=== PATIENT | male | born 1950 | race Caucasian/White ===

== ENCOUNTER 2024-02-03 08:53 | Outpatient (AMB) | payer MEDICARE, SELFPAY ==
--- NOTE | 2024-02-03 09:01 | MHC.PC.OV ---
Vital Signs 02/03/24 09:11 Height 5 ft 4 in Weight 140 lb 6 oz BMI 24.1 BP 110/58 L Blood Pressure Location Lt brachial Position Sitting Respiration 13 Pulse 73 Pulse Source Pulse Oximeter Pulse Oximetry (%) 96 Oxygen Delivery Method Room Air Intake Visit Reasons: NPV Intake Note: Patient is here to establish care with no concerns at this time. Benzene Operator Required: No Accompanied by: Self / Same As Patient Allergies No Known Allergies Allergy (Verified 02/03/24 09:14) Medication List - Last Reconciled 02/03/24 by Carmelina Schultz MD alirocumab (Praluent Pen) 75 mg subcut Q2W docusate sodium 50 mg PO DAILY losartan 25 mg PO DAILY omeprazole 40 mg PO BID ondansetron HCl 4 mg PO Q6H PRN Tobacco use date assessed: 02/03/24 Fall risk assessment: No Falls in past year Last assessed Fall Risk: 02/03/24 Dental Screening Dental Screen Date: 02/03/24 Did you have a dental visit in the last 12 months?: Yes Did you have a dental problem in the last 6 months where you did not have access to dental care?: No Was dental information given to patient?: Patient has dentist HPI HPI Comments History of Present Illness Details The patient is a 73 year old male with a past medical history of hypertension, hyperlipidemia, tobacco use, GERD, presenting to [facility]. Transferring from [facility]. [place]. Follows at [place] for scripts CV: on losartan, praluent. Denies chest pain, dizziness, vision changes. GI: barretts, GERD, ulcerative colitis. On omeprazole 40mg twice daily, mesalamine. Still has frequent nausea, dyspepsia. Had a CT abd/pelvis. Showed inflamed appendix. Got removed 12/2023. No symptom relief. Also has significant amount of gallbladder sludge, stones. No RUQ pain. Has seen surgery. Was following with Dr Kelly at [place]. Thinks last endoscopy 2 years ago. Needs new GI 2/2 insurance Recurring precancerous lesion of right cheek. Has upcoming dermatology appt for which he needs referral ROS CONSTITUTIONAL: Denies weight loss, fever and chills. HEENT: Denies changes in vision and hearing. RESPIRATORY: Denies SOB and cough. CV: Denies palpitations and CP GI: see HPI. : Denies dysuria and urinary frequency. MSK: Denies new myalgia and joint pain. SKIN: Denies rash and pruritus. NEUROLOGICAL: Denies headache PSYCHIATRIC: Denies recent changes in mood. PHYSICAL EXAM: GENERAL: Alert and oriented x 3. NAD EYES: EOMI. Anicteric. HENT: Moist mucous membranes. No scleral icterus. No cervical lymphadenopathy. LUNGS: Clear to auscultation bilaterally. CARDIOVASCULAR: Regular rate and rhythm. No murmur. No JVD. ABDOMEN: Soft, non-tender +bs EXTREMITIES: No edema. Non-tender. SKIN: No rashes or lesions. Warm. NEUROLOGIC: No focal neurological deficits. CN II-XII grossly intact PSYCHIATRIC: Cooperative. Appropriate mood and affect [facility] Medical History (Updated 02/03/24 @ 12:26 by Carmelina Schultz MD) Psoriasis Osteoporosis Precancerous skin lesion Clarke esophagus GERD (gastroesophageal reflux disease) Hyperlipidemia Ulcerative colitis Hypertension Surgical History (Updated 02/03/24 @ 10:20 by Sofia Arias CMA) History of appendectomy Family History (Updated 02/03/24 @ 10:21 by Sofia Arias CMA) Mother Psychiatric diagnosis Father Alcoholism Social History (Updated 02/03/24 @ 10:18 by Sofia Arias CMA) Household Members: Spouse Housing: House 75 years or older and lives alone: No Alcohol intake: never Patient Tobacco Use Status: Current everyday Tobacco user Tobacco use type: Cigarette Cigarette Packs Per Day: 0.5 Cigarettes Per Day: 15 Years Smoked: 60 e-Cigarette/Vaping Use: Never Used service: Yes ([employer] ) Current occupational status: retired Current occupational exposures/hazards: No Cognitive needs: No Hearing needs: No Vision needs: No Questionnaire PHQ-9 Over the last 2 weeks, how often have you been bothered by any of the following problems? 1. Little interest or pleasure in doing things: not at all 2. Feeling down, depressed, or hopeless: several days 3. Trouble falling or staying asleep, or sleeping too much: not at all 4. Feeling tired or having little energy: not at all 5. Poor appetite or overeating: not at all 6. Feeling bad about yourself - or that you are a failure or have let yourself or your family down: not at all 7. Trouble concentrating on things, such as reading the newspaper or watching television: not at all 8. Moving or speaking so slowly that other people could have noticed. Or the opposite - being so fidgety or restless that you have been moving around a lot more than usual: not at all 9. Thoughts that you would be better off or of hurting yourself in some way: not at all Total score: 1 Depression Screening Interpretation: Negative (NEG) Depression Screening Done: Yes 67187 - PHQ-9 Billing: Yes Source: Developed by Drs. Chris Kaiser, Nicole Ann, Abisai Pastrana and colleagues, with an educational jocelyne from [employer]. Thrive Questionnaire Date Thrive assessed: 02/03/24 I am a: Patient What is your living situation today?: I have a steady place to live Within the past 12 months, did the food you bought not last and you didn't have the money to get more?: Never true Within the past 12 months, did you worry whether your food would run out before you got money to buy more?: Never true Do you have trouble paying for medicines?: No Do you have trouble getting transportation to medical appointments?: No Do you have trouble paying your heating and electricity bill?: No Do you have trouble taking care of your child, family member or friend?: No Do you have trouble with day-to-day activities such as bathing, preparing meals, shopping, managing finances, etc.?: No Are you currently unemployed and looking for a job?: No Are you interested in more education?: No Please select the resources that you would like help with: None Currently or been in a relationship where the following occur: No concerns reported THRIVE Score: 0 JOSE MARIA-7 AMB Questionnaire JOSE MARIA-7 Date JOSE MARIA - 7 assessed: 02/03/24 Feeling nervous, anxious, or on edge: 1 = Several days Not being able to stop or control worryin = Not at all Worrying too much about different things: 1 = Several days Trouble relaxin = Several days Being so restless that it is hard to sit still: 0 = Not at all Becoming easily annoyed or irritable: 0 = Not at all Feeling afraid as if something awful might happen: 1 = Several days Total JOSE MARIA-7 score (0-4 normal; 5-9 mild; 10-14 moderate; 15-21 severe): 4 Source: Developed by Drs. Chris Kaiser, Nicole Ann, Abisai Pastrana and colleagues, with an educational jocelyne from [employer]. JOSE MARIA-7 Assessment Billing JOSE MARIA-7 Assessment Tool: JOSE MARIA-7 Assessment 18443 Physical exam (Primary Care) Vital Signs: Last Vital Signs Pulse 73 02/03/24 09:11 Resp 13 02/03/24 09:11 BP 110/58 L 02/03/24 09:11 Pulse Ox 96 02/03/24 09:11 Oxygen Delivery Method Room Air 02/03/24 09:11 BMI result Body Mass Index 24.1 Tobacco/Smoking Status: Tobacco use Status Tobacco use date assessed 02/03/24 02/03/24 09:26 Patient Tobacco Use Status Current everyday Tobacco 02/03/24 10:18 Tobacco use type Cigarette 02/03/24 10:18 e-Cigarette/Vaping Use Never Used 02/03/24 10:18 PHQ-9: PHQ-9 Score PHQ-9: Total score 1 02/03/24 10:17 Depression Screening Interpretation: Negative (NEG) Thrive Assessment: Date of Thrive Assessment Date Thrive assessed 02/03/24 02/03/24 10:17 Currently or been in a relationship where the following occur: No concerns reported Assessment and Plan Assessment & Plan (1) Hypertension: Comment: well controlled on current medication Code(s): I10 - Essential (primary) hypertension Qualifiers: Hypertension type: primary hypertension Qualified Code(s): I10 - Essential (primary) hypertension (2) Hyperlipidemia: Code(s): E78.5 - Hyperlipidemia, unspecified Qualifiers: Hyperlipidemia type: mixed hyperlipidemia Qualified Code(s): E78.2 - Mixed hyperlipidemia (3) Ulcerative colitis: Code(s): K51.90 - Ulcerative colitis, unspecified, without complications Qualifiers: Ulcerative colitis location: other ulcerative colitis Digestive disease complication type: unspecified complication Qualified Code(s): K51.819 - Other ulcerative colitis with unspecified complications (4) GERD (gastroesophageal reflux disease): Code(s): K21.9 - Gastro-esophageal reflux disease without esophagitis Qualifiers: Esophagitis presence: esophagitis presence not specified Qualified Code(s): K21.9 - Gastro-esophageal reflux disease without esophagitis Plan: referral to GI placed (5) Clarke esophagus: Code(s): K22.70 - Clarke's esophagus without dysplasia Qualifiers: Clarke's esophagus type: with dysplasia of unspecified degree Qualified Code(s): K22.719 - Clarke's esophagus with dysplasia, unspecified (6) Precancerous skin lesion: Code(s): L98.9 - Disorder of the skin and subcutaneous tissue, unspecified Plan: referral to dermatology placed Orders: Referrals Gastroenterology Referral K21.9 - Gastro-esophageal reflux disease without esophagitis, K22.70 - Clarke's esophagus without dysplasia, K51.90 - Ulcerative colitis, unspecified, without complications Dermatology Referral L98.9 - Disorder of the skin and subcutaneous tissue, unspecified Medications: New mesalamine ER 2.25 grams (6 x 0.375 gram) PO DAILY 540 caps 3RF Coding Level of Care Code Tele New Pt Level 5 (30896) Diagnoses Primary hypertension I10 Hypertension type: primary hypertension Mixed hyperlipidemia E78.2 Hyperlipidemia type: mixed hyperlipidemia Other ulcerative colitis with complication K51.819 Ulcerative colitis location: other ulcerative colitis Digestive disease complication type: unspecified complication Gastroesophageal reflux disease, unspecified whether esophagitis present K21.9 Esophagitis presence: esophagitis presence not specified Clarke's esophagus with dysplasia K22.719 Clarke's esophagus type: with dysplasia of unspecified degree Precancerous skin lesion L98.9 Additional Codes JOSE MARIA-7 Assessment Billing - JOSE MARIA-7 Assessment Tool: JOSE MARIA-7 Assessment [id number] ([id number])
[2024-02-03 09:11] VITALS: BP 110/58; PULSE 73; RESP 13; O2SAT 96; BMI 24.1
== END 2024-02-03 09:56 | disposition home or self-care (01) ==
PROVIDERS: PCP Internal Medicine; Visit Provider Internal Medicine
DX: I10 Essential (primary) hypertension (principal); E78.2 Mixed hyperlipidemia; K51.819 Other ulcerative colitis with unspecified complications; K21.9 Gastro-esophageal reflux disease without esophagitis; K22.719 Barrett's esophagus with dysplasia, unspecified; L98.9 Disorder of the skin and subcutaneous tissue, unspecified
CPT/HCPCS: 99204